=== PATIENT | male | born 1935 | race Caucasian/White ===

== ENCOUNTER 2017-11-03 13:51 | Emergency (ER) | payer MEDICARE, SELFPAY ==
[2017-11-03 14:07] VITALS: BP 146/85; PULSE 63; RESP 16; TEMP 36.2; O2SAT 98; BMI 25.1
--- NOTE | 2017-11-03 15:29 | ED.SKABFB ---
HPI - Skin/Abscess/Foreign Bdy <ANNMARIE Garcia - Last Filed: 11/03/17 21:32> General Chief complaint: Skin/Abscess/Foreign Body Stated complaint: cut lt hand Time Seen by Provider: 11/03/17 15:29 History of Present Illness HPI narrative: 82-year-old male here for complaint of laceration to his left little finger. He states that he slipped on some while on his boat and causing him to come a time today with some metal on the boat. Incident have not earlier this afternoon. He denies any other injuries. No head injuries. He states his last tetanus was approximately 6 years ago. Bleeding is controlled. He is ambulatory into the emergency room. No other complaints Related Data Home Medications Medication Instructions Recorded Confirmed Vitamin C 1 tab PO DAILY 11/03/17 11/03/17 cholecalciferol (vitamin D3) 400 unit PO DAILY 11/03/17 11/03/17 [Vitamin D3] multivitamin 1 cap PO DAILY 11/03/17 11/03/17 Previous Rx's Medication Instructions Recorded amlodipine [Norvasc] 10 mg PO QDAY #90 tab 01/16/17 hydrochlorothiazide 25 mg PO QDAY #90 tab 06/13/17 Allergies Allergy/AdvReac Type Severity Reaction Status Date / Time aspirin Allergy Severe THROAT Unverified 09/04/17 13:05 SWELLING ibuprofen Allergy Intermediate HIVES Unverified 09/04/17 13:05 naproxen Allergy Intermediate HIVES Unverified 09/04/17 13:05 lisinopril AdvReac Mild COUGH Unverified 09/04/17 13:05 metronidazole AdvReac Mild NAUSEA Verified 11/03/17 14:10 Review of Systems <ANNMARIE Garcia - Last Filed: 11/03/17 21:32> Constitutional Denies chills, Denies fever(s), Denies lethargy and Denies weakness Eyes Denies change in vision, Denies eye discharge, Denies irritation and Denies loss of vision ENT Ears, Nose, Mouth, and Throat: Denies change in voice, Denies neck pain and Denies sore throat Cardiovascular Denies chest pain, Denies irregular heart rhythm, Denies lightheadedness, Denies palpitations, Denies dyspnea, Denies dyspnea on exertion and Denies orthopnea Respiratory Denies cough, Denies dyspnea, Denies dyspnea on exertion and Denies wheezing Gastrointestinal Gastrointestinal: Denies abdominal pain, Denies change in bowel habits, Denies diarrhea, Denies nausea and Denies vomiting Genitourinary Denies hematuria, Denies flank pain, Denies urinary incontinence and Denies urinary urgency Musculoskeletal Denies neck pain Comments: Laceration left little finger Integumentary/Breasts Denies pruritus, Denies erythema, Denies rash and Denies wounds Neurologic Denies confusion, Denies loss of vision and Denies weakness Psychiatric Denies anxiety, Denies confusion, Denies depression, Denies homicidal ideation and Denies suicidal ideation Endocrine Denies palpitations Allergic/Immunologic Denies wheezing Exam <ANNMARIE Garcia - Last Filed: 11/03/17 21:32> Initial Vital Signs Initial Vital Signs: Vital Signs Temperature 97.2 F L 11/03/17 14:07 Pulse Rate 63 11/03/17 14:07 Respiratory Rate 16 11/03/17 14:07 Blood Pressure 146/85 H 11/03/17 14:07 Pulse Oximetry 98 11/03/17 14:07 Const General: cooperative and well developed Nutritional Appearance: well nourished Orientation: alert, awake, oriented x3 and not confused [facility] Mouth: oral mucosae normal and moist mucous membranes Eyes Conjunctivae: conjunctivae normal Sclera: sclerae normal Pupils: PERRL EOM: EOM intact bilaterally Resp Effort & Inspection: normal respiratory effort, able to speak in complete sentences, no respiratory distress and no use of accessory muscles Auscultation: clear to auscultation bilaterally, no rales, no rhonchi and no wheezes Cardio Rate: regular rate Rhythm: regular rhythm Heart Sounds: no click, no gallops, no murmurs and no rubs Pulses: normal peripheral pulses Skin General: no rashes or lesions noted, No jaundice and No petechiae Other: 2 cm laceration to distal left little finger palmar aspect just distal to the DIP. Distal sensation is intact. Full range of motion. Distal cap refill less than 2 sec. <Wilfrid Chawla DO - Last Filed: 11/04/17 07:18> Initial Vital Signs Initial Vital Signs: Vital Signs Temperature 97.2 F L 11/03/17 14:07 Pulse Rate 63 11/03/17 14:07 Respiratory Rate 16 11/03/17 14:07 Blood Pressure 146/85 H 11/03/17 14:07 Pulse Oximetry 98 11/03/17 14:07 Procedures <ANNMARIE Garcia - Last Filed: 11/03/17 21:32> Laceration Repair Laceration 1: Site: other (Left little finger) Side (If applicable): left Size (cm): 2 Description: linear Depth: simple, single layer Local Anesthetic: lidocaine 1% Amount of anesthesia used (mL): 2 Pre-repair: wound explored and irrigated extensively Skin layer closed with: nylon Size (cm): 5-0 Number of sutures: 6 Technique: simple, interrupted Course <ANNMARIE Garcia - Last Filed: 11/03/17 21:32> Orders Ordered: Discontinued Medications Diphtheria/Tetanus/Acell Pertussis (Adacel) 0.5 ml IM .ONCE ONE Stop: 11/03/17 15:36 Last Admin: 11/03/17 15:55 Dose: 0.5 ml Vital Signs - 8 hr 11/03/17 14:07 11/03/17 16:27 Temperature 97.2 F L Pulse Rate 63 65 Respiratory Rate 16 15 Blood Pressure 146/85 H Blood Pressure [Right Arm] 152/83 H Pulse Oximetry 98 97 <Wilfrid Chawla DO - Last Filed: 11/04/17 07:18> Orders Ordered: Discontinued Medications Diphtheria/Tetanus/Acell Pertussis (Adacel) 0.5 ml IM .ONCE ONE Stop: 11/03/17 15:36 Last Admin: 11/03/17 15:55 Dose: 0.5 ml Vital Signs - 8 hr 11/03/17 14:07 11/03/17 16:27 Temperature 97.2 F L Pulse Rate 63 65 Respiratory Rate 16 15 Blood Pressure 146/85 H Blood Pressure [Right Arm] 152/83 H Pulse Oximetry 98 97 MDM - Skin/Abscess/Foreign Bdy <ANNMARIE Garcia - Last Filed: 11/03/17 21:32> Imaging Data finger: Radiologist's impression: Patient: Devante Mabry MR#: [id number] : 1935 Acct:[id number] Age/Sex: 82 / M Date of Service: 11/03/17 Loc: ED Accession Number: [id number] Procedure: XR finger LT min 2V Ordering Provider: Emery Her PROCEDURE: XR FINGER LT MIN 2V INDICATIONS: Laceration to left little finger TECHNIQUE: AP hand, 2 views of the left finger(s) acquired. COMPARISON: None. FINDINGS: Bones: No fractures or dislocations. No suspicious bony lesions. Diffuse interphalangeal, distal radioulnar, triscaphe and first CMC joint degeneration Soft tissues: No suspicious soft tissue calcifications. IMPRESSION: No radiopaque foreign body or fracture. Degenerative changes as above Dictated by: Clint Pierce M.D. on 11/03/2017 at 16:01 Approved by: Clint Pierce M.D. on 11/03/2017 at 16:03 [facility] Narrative Medical decision making narrative: Laceration to left finger was closed with 6 sutures. Sutures to be removed in 7-10 days. [id number] Tylenol as needed for any discomfort. X-ray of the fingers was negative for any foreign bodies or fractures. Tetanus was updated today in the emergency room. Keep dressing on clean and dry for 24 hr after the 24 hr may change dressing and shower briefly after showering dry wound and dressed with bacitracin and a dressing. Dress wound daily with bacitracin and a dressing. Follow up with primary care provider. Return emergency room for any worsening symptoms. Discharge Plan Departure Patient Disposition: Home, Self-Care Clinical Impression: Laceration of left little finger Discharge Date/Time: 11/03/17 16:30 Interventions: ED Discharge Assessment Last Done: 11/03/17 16:27 Instructions: DI for Laceration Repair Activity Restrictions/Additional Instructions: Laceration to left finger was closed with 6 sutures. Sutures to be removed in 7-10 days. [id number] Tylenol as needed for any discomfort. Tetanus was updated today in the emergency room. Keep dressing on clean and dry for 24 hr after the 24 hr may change dressing and shower briefly after showering dry wound and dressed with bacitracin and a dressing. Dress wound daily with bacitracin and a dressing. Follow up with primary care provider. Return emergency room for any worsening symptoms. Prescriptions: No Action amlodipine [Norvasc] 10 MG tablet 10 mg PO QDAY Qty: 90 RF: 3 hydrochlorothiazide 25 MG tablet 25 mg PO QDAY Qty: 90 RF: 3 multivitamin Capsule 1 cap PO DAILY RF: 0 cholecalciferol (vitamin D3) [Vitamin D3] 400 unit Tablet 400 unit PO DAILY RF: 0 Vitamin C 1 tab PO DAILY RF: 0 Referrals: Albino Coughlin MD [Primary Care Provider] - <Wilfrid Chawla DO - Last Filed: 11/04/17 07:18> Cosign ED Attending Cosionaature Attestation: I was immediately available in the department for consultation. Documentation has been reviewed. I agree with assessment and plan.
--- NOTE | 2017-11-03 15:35 | DI.RAD.S_ITS ---
PROCEDURE: XR FINGER LT MIN 2V INDICATIONS: Laceration to left little finger TECHNIQUE: AP hand, 2 views of the left finger(s) acquired. COMPARISON: None. FINDINGS: Bones: No fractures or dislocations. No suspicious bony lesions. Diffuse interphalangeal, distal radioulnar, triscaphe and first CMC joint degeneration Soft tissues: No suspicious soft tissue calcifications. IMPRESSION: No radiopaque foreign body or fracture. Degenerative changes as above Dictated by: Clint Pierce M.D. on 11/03/2017 at 16:01 Approved by: Clint Pierce M.D. on 11/03/2017 at 16:03
[2017-11-03] MEDS: TET,DIPH,PERTUSS(ACELL),VAC/PF 0.5 ML SYRINGE IM (15:55)
--- NOTE | 2017-11-03 16:23 | PC.NURSE ---
5/8 tubeguaze and xeroform 1 im to l 5th finger
[2017-11-03 16:27] VITALS: BP 152/83; PULSE 65; RESP 15; O2SAT 97
== END 2017-11-03 16:30 | disposition home or self-care (01) ==
PROVIDERS: Emergency Provider Nurse Practitioner Family; PCP Internal Medicine
DX: S61.217A Laceration without foreign body of left little finger without damage to nail, initial encounter (principal); W26.9XXA Contact with unspecified sharp object(s), initial encounter
CPT/HCPCS: 12001; 73140; 90471; 99282; 99283; 90715

== ENCOUNTER → 2018-03-03 10:15 | Outpatient (CLI) | payer MEDICARE, SELFPAY ==
[2018-03-03 12:21] LABS: BUN Creatinine Ratio 18.8 (6-22); Blood Urea Nitrogen 15 mg/dL (9-20); Calcium 9.6 mg/dL (8.4-10.2); Carbon Dioxide 34 mmol/L (22-32); Chloride 100 mmol/L (98-107); Estimated Glomerular Filt Rate > 60.0 mL/min (>60); Glucose 87 mg/dL (80-110); HEMOLYSIS < 15 (0-50); Potassium 3.7 mmol/L (3.4-5.1); Sodium 142 mmol/L (137-145)
== END ==
PROVIDERS: PCP Internal Medicine; Visit Provider Internal Medicine
DX: I10 Essential (primary) hypertension (principal)
CPT/HCPCS: 36415; 80048

== ENCOUNTER 2018-04-24 06:49 | Emergency (ER) | payer MEDICARE, SELFPAY ==
[2018-04-24 06:55] VITALS: BP 153/86; PULSE 88; RESP 16; TEMP 37.2; O2SAT 99; BMI 24.3
--- NOTE | 2018-04-24 06:58 | DI.RAD.S_ITS ---
PROCEDURE: XR CHEST 1V INDICATIONS: Chest tightness with cough TECHNIQUE: One view of the chest was acquired. COMPARISON: [facility], CHEST 2 VIEW, 08/04/2015, 15:57. [facility], , CHEST 1 VIEW, 03/23/2015, 10:03. FINDINGS: Surgical changes and devices: None. Lungs and pleura: No pleural effusions or pneumothorax. Lungs are clear. Mediastinum: Mediastinal contours appear normal. Heart size is normal. Bones and chest wall: No suspicious bony lesions. Overlying soft tissues appear unremarkable. IMPRESSION: Normal for age, source of current symptoms is not seen. Dictated by: Joel Chowdary M.D. on 04/24/2018 at 8:10 Approved by: Joel Chowdary M.D. on 04/24/2018 at 8:14
[2018-04-24 07:18] LABS: INR 1.1 (0.9-1.3); Prothrombin Time 11.4 SECONDS (10.1-12.7)
[2018-04-24 07:20] LABS: Add Manual Diff / Slide Review NO; Basophils Percent Auto 0.4 % (0-2); Eosinophils Percent Auto 4.1 % (2-4); Hemoglobin 15.6 g/dL (13.5-17.5); Lymphocytes Percent Auto 20.2 % (25-40); Mean Corpuscular HGB Conc 34.7 % (30-36); Mean Corpuscular Hemoglobin 29.4 PG (26-34); Mean Corpuscular Volume 84.6 fL (80-100); Monocytes Percent Auto 10.9 % (3-14); Neutrophils Absolute Auto 5200 /uL (3000-5900); Neutrophils Percent Auto 64.4 % (50-75); PTT Partial Thromboplastin Tim 33 SECONDS (26.4-36.2); Platelet Count 217 X10^3/uL (150-400); Red Blood Cell Count 5.31 X10^6/uL (4.5-5.9); Red Cell Distribution Width 14.1 % (11.6-14.8); White Blood Cell Count 8.1 X10^3/uL (4.5-11.0)
[2018-04-24 07:23] LABS: Alanine Aminotransferase 24 IU/L (21-72); Albumin 4.7 g/dL (3.5-5.0); Albumin Globulin Ratio 1.4 (1.0-2.8); Alkaline Phosphatase 74 U/L (38-126); Aspartate Aminotransferase 24 IU/L (17-59); Bilirubin Total 0.7 mg/dL (0.2-1.3); Blood Urea Nitrogen 20 mg/dL (9-20); Calcium 9.4 mg/dL (8.4-10.2); Carbon Dioxide 32 mmol/L (22-32); Chloride 100 mmol/L (98-107); Estimated Glomerular Filt Rate > 60.0 mL/min (>60); Globulin 3.3 g/dL (1.7-4.1); Glucose 105 mg/dL (80-110); HEMOLYSIS < 15 (0-50); Lipase 90 U/L (23-300); Potassium 3.7 mmol/L (3.4-5.1); Sodium 145 mmol/L (137-145)
--- NOTE | 2018-04-24 07:26 | ED.CHESTPAIN ---
HPI - Chest Pain General Chief Complaint: Chest Pain Stated Complaint: heaviness in chest, cough Time Seen by Provider: 04/24/18 06:57 Source: patient and old records reviewed Mode of arrival: ambulatory Limitations: no limitations History of Present Illness HPI narrative: This is an 82-year-old male who comes to the emergency department with complaint of chest pain. Patient states that about 3 days ago he started having a sore throat for starting on the left side and then to the right. He also noticed that he was horse. He states the forces improving today. He has not had any fevers. He has had mild cough which she describes having a little bit of phlegm production with a slight change to color and thickness but very mild. He states that this morning about 4:00 a.m. he was awake and noticed that he had some chest pain and pressure that started. He describes it not as pain but pressure. He states it has been constant since then although it has resolved here in the emergency department. Patient states that he does not feel short of breath at any time. He denies any nausea or vomiting. No diarrhea or constipation he denies any fevers, he denies any rashes or skin changes. Patient does not have any known cardiac history, no prior stents or heart attacks. He does take blood pressure medication including amlodipine and hydrochlorothiazide which he had not had this morning. 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 This was when he was 14. He denies any allergies. MD complaint: chest pain Related Data Home Medications Medication Instructions Recorded Confirmed cholecalciferol (vitamin D3) 400 unit PO DAILY 11/03/17 03/03/18 [Vitamin D3] multivitamin 1 cap PO DAILY 11/03/17 03/03/18 Previous Rx's Medication Instructions Recorded hydrochlorothiazide 25 mg PO QDAY #90 tab 06/13/17 amlodipine [Norvasc] 10 mg PO QDAY #90 tab 01/14/18 sildenafil (antihypertensive) 20 See Label Instructions PO .COMPLEX 03/03/18 mg tablet PRN #30 tab Allergies Allergy/AdvReac Type Severity Reaction Status Date / Time aspirin Allergy Severe THROAT Verified 03/03/18 09:33 SWELLING ibuprofen Allergy Intermediate HIVES Verified 03/03/18 09:33 naproxen Allergy Intermediate HIVES Verified 03/03/18 09:33 lisinopril AdvReac Mild COUGH Verified 03/03/18 09:33 metronidazole AdvReac Mild NAUSEA Verified 03/03/18 09:33 Review of Systems Review of Systems All systems reviewed & are unremarkable except as noted in HPI and below Constitutional Denies body ache(s) and Denies fever(s) ENT Ears, Nose, Mouth, and Throat: Reports hoarseness, Denies nasal congestion, Reports sore throat and Denies throat swelling Cardiovascular Reports chest pain, Denies diaphoresis, Denies syncope, Denies edema, Denies radiating jaw, neck or arm pain, Denies dyspnea and Denies dyspnea on exertion Respiratory Reports change in phlegm color, Reports chest congestion, Reports cough (mildly increased phlegm), Denies dyspnea, Denies dyspnea on exertion and Denies wheezing Gastrointestinal Gastrointestinal: Denies abdominal pain, Denies change in bowel habits, Denies diarrhea, Denies nausea and Denies vomiting Genitourinary Denies difficulty urinating Musculoskeletal Denies back pain Integumentary/Breasts Denies rash Neurologic Denies syncope Allergic/Immunologic Denies throat swelling and Denies wheezing [facility] Medical History Essential hypertension (Chronic 04/09/11) Palpitations (Inactive) Psoriasis (Chronic 04/09/11) Hypertension (Chronic) Psoriasis (Chronic) Surgical History Status post transurethral resection of prostate Social History marital status: number of children: 2 household members: none lives independently: Yes caregiver/support person: No housing: house pets and animals: Yes (Fish) 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[employer], 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.) occupational status: other (Retired) Previous occupational history: [employer] leisure activities: exercise (Walking.), 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 1 beer a day with Dinner.) substance use type: does not use Exam Narrative Exam Narrative: GEN: well nourished, well appearing male, alert and oriented x 3, patient appears to be in no acute distress. HEENT: Atraumatic, pupils are equal round reactive to light, extraocular movements are intact, nares are clear, TMs are clear with no fluid, there is no conjunctival pallor. Throat is without any exudates, mild erythema, no tonsillar enlargement or uvular deviation, patient is slightly hoarse. HEART: Regular rate and rhythm without murmur, clicks, rubs. LUNGS:Lungs clear to auscultation, no wheezes, rales, crackles, chest moves symmetrically no tachypnea, no rash or skin changes of the chest. ABD:bowel sounds normal, soft, non-tender, no guarding, rebound, rigidity, no masses noted, no hepatosplenomegaly :No CVA tenderness MSCL: Non-tender, no muscle atrophy, full range of motion, normal gait NEURO:CN 2-12 intact, sensation normal Initial Vital Signs Initial Vital Signs: Vital Signs Temperature 98.9 F 04/24/18 06:55 Pulse Rate 88 04/24/18 06:55 Respiratory Rate 16 04/24/18 06:55 Blood Pressure 153/86 H 04/24/18 06:55 Pulse Oximetry 99 04/24/18 06:55 Scores HEART Score Heart Score history: Slightly Suspicious Heart Score EKG: Non-Specific repolarization disturbance Heart Score Age: > or = 65 years old Heart Score risk factors: 1-2 risk factors Heart Score troponin: < or = to normal limit Heart Score Total: 4 Course Orders Ordered: ED Orders 04/24/18 06:52 B Type Natriuretic Peptide Stat Complete Blood Count AUTO DIFF Stat Comprehensive Metabolic Panel Stat Lipase Stat Partial Thromboplastin Time Stat Prothrombin Time INR Stat Troponin I Stat 04/24/18 06:58 XR chest 1V Stat EKG-12 Lead Stat 04/24/18 09:00 EKG-12 Lead Stat 04/24/18 09:15 Troponin & CK Cardiac Panel Stat Vital Signs - 8 hr 04/24/18 06:55 04/24/18 08:45 04/24/18 09:14 Temperature 98.9 F Pulse Rate 88 65 66 Respiratory Rate 16 18 14 Blood Pressure 153/86 H Blood Pressure [Left Arm] 117/74 121/75 Pulse Oximetry 99 95 MDM - Chest Pain Lab Data Attestation: I reviewed the patient's lab results. Result diagrams: 04/24/18 06:52 04/24/18 06:52 Lab Results 04/24/18 04/24/18 04/24/18 Range/Units 06:52 06:52 06:52 WBC 8.1 (4.5-11.0) X10^3/uL RBC 5.31 (4.5-5.9) X10^6/uL Hgb 15.6 (13.5-17.5) g/dL Hct 45.0 (41-53) % MCV 84.6 (80-100) fL MCH 29.4 (26-34) PG MCHC 34.7 (30-36) % RDW 14.1 (11.6-14.8) % Plt Count 217 (150-400) X10^3/uL Neut % (Auto) 64.4 (50-75) % Lymph % (Auto) 20.2 L (25-40) % Nelson % (Auto) 10.9 (3-14) % Eos % (Auto) 4.1 H (2-4) % Baso % (Auto) 0.4 (0-2) % Neut # (Auto) 5200 (1816-6183) /uL PT 11.4 (10.1-12.7) SECONDS INR 1.1 (0.9-1.3) APTT 33 (26.4-36.2) SECONDS Sodium 145 (137-145) mmol/L Potassium 3.7 (3.4-5.1) mmol/L Chloride 100 (98-107) mmol/L Carbon Dioxide 32 (22-32) mmol/L BUN 20 (9-20) mg/dL Creatinine 0.80 (0.66-1.25) mg/dL Estimated GFR > 60.0 (>60) mL/min BUN/Creatinine Ratio 25.0 H (6-22) Glucose 105 (80-110) mg/dL Calcium 9.4 (8.4-10.2) mg/dL Total Bilirubin 0.7 (0.2-1.3) mg/dL AST 24 (17-59) IU/L ALT 24 (21-72) IU/L Alkaline Phosphatase 74 (38-126) U/L Total Creatine Kinase (55-170) U/L CK-MB (CK-2) CK-MB (CK-2) Rel Index Troponin I < 0.012 (0.01-0.034) ng/mL B-Natriuretic Peptide 47.5 (<100) Total Protein 8.0 (6.3-8.2) g/dL Albumin 4.7 (3.5-5.0) g/dL Globulin 3.3 (1.7-4.1) g/dL Albumin/Globulin Ratio 1.4 (1.0-2.8) Lipase 90 (23-300) U/L 04/24/18 Range/Units 09:15 WBC (4.5-11.0) X10^3/uL RBC (4.5-5.9) X10^6/uL Hgb (13.5-17.5) g/dL Hct (41-53) % MCV (80-100) fL MCH (26-34) PG MCHC (30-36) % RDW (11.6-14.8) % Plt Count (150-400) X10^3/uL Neut % (Auto) (50-75) % Lymph % (Auto) (25-40) % Nelson % (Auto) (3-14) % Eos % (Auto) (2-4) % Baso % (Auto) (0-2) % Neut # (Auto) (4036-2452) /uL PT (10.1-12.7) SECONDS INR (0.9-1.3) APTT (26.4-36.2) SECONDS Sodium (137-145) mmol/L Potassium (3.4-5.1) mmol/L Chloride (98-107) mmol/L Carbon Dioxide (22-32) mmol/L BUN (9-20) mg/dL Creatinine (0.66-1.25) mg/dL Estimated GFR (>60) mL/min BUN/Creatinine Ratio (6-22) Glucose (80-110) mg/dL Calcium (8.4-10.2) mg/dL Total Bilirubin (0.2-1.3) mg/dL AST (17-59) IU/L ALT (21-72) IU/L Alkaline Phosphatase (38-126) U/L Total Creatine Kinase 39 L (55-170) U/L CK-MB (CK-2) TNP CK-MB (CK-2) Rel Index TNP Troponin I < 0.012 (0.01-0.034) ng/mL B-Natriuretic Peptide (<100) Total Protein (6.3-8.2) g/dL Albumin (3.5-5.0) g/dL Globulin (1.7-4.1) g/dL Albumin/Globulin Ratio (1.0-2.8) Lipase (23-300) U/L Imaging Data Chest x-ray: Radiologist's impression: [address] [id number] XRay Report Signed Patient: Devante Mabry [facility]#: [id number] : 8Acct:[id number] Age/Sex: 82 / MDate of Service: 04/24/18 Loc: ED Accession Number: [id number] Procedure: XR chest 1V Ordering Provider: Wenceslao Galindo D.O. PROCEDURE: XR CHEST 1V INDICATIONS: Chest tightness with cough TECHNIQUE: One view of the chest was acquired. COMPARISON: [facility], , CHEST 2 VIEW, 08/04/2015, 15:57. [facility], , CHEST 1 VIEW, 03/23/2015, 10:03. FINDINGS: Surgical changes and devices: None. Lungs and pleura: No pleural effusions or pneumothorax. Lungs are clear. Mediastinum: Mediastinal contours appear normal. Heart size is normal. Bones and chest wall: No suspicious bony lesions. Overlying soft tissues appear unremarkable. IMPRESSION: Normal for age, source of current symptoms is not seen. Dictated by: Joel Chowdary M.D. on 04/24/2018 at 8:10 Approved by: Joel Chowdary M.D. on 04/24/2018 at 8:14 ECG Data Attestation: I personally reviewed and interpreted this ECG as follows: Prior ECG tracings: available for review Interpretation: Sinus rhythm with a rate of 76 P are 170 QRS of 126 and QTC of 482. No ST elevation or depression appreciated. Patient has prior EKG from 03/23/2017 which appears similar. EKG 2. Shows a sinus rhythm with a rate of 65 P are 160 QRS of 115 and QTC of 436. EKG appears similar to prior from earlier today. MDM Narrative Medical decision making narrative: Patient negative troponin with no major EKG changes. He does have risk factors with his age as well as hypertension. Otherwise no known cardiac history. I suspect that he has a viral pharyngitis but that this is likely the cause of his chest pain although possibly. Discussed with patient about possible observation versus 4 hr troponin and patient defers observation. Patient's heart score is 4. Spoke with Dr. Coughlin and felt that his chest pain is not necessarily cardiac in origin, he will also reveiw today's EKG's. We will plan to repeat troponin and EKG and did discuss the risks versus benefits with patient and as repeat and troponin are negative and showed no new changes Patient will follow up with Dr. Coughlin for short-term stress testing. Discharge Plan Departure Patient Disposition: Home Clinical Impression: Chest pain, Acute pharyngitis Discharge Date/Time: 04/24/18 10:08 Interventions: ED Discharge Assessment Last Done: 04/24/18 10:07 Instructions: DI for Chest Pain Activity Restrictions/Additional Instructions: Follow-up with Dr. Coughlin in the next 1-2 days for recheck. Call the office for an appointment. Dr. Coughlin is aware of your emergency room visit and is planning to set you up for stress testing in the short term. Continue your home medications as prescribed. Return to the emergency department for increasing chest pain, shortness of breath, passing out, difficulty breathing or other new or concerning symptoms. Prescriptions: No Action hydrochlorothiazide 25 MG tablet 25 mg PO QDAY Qty: 90 RF: 3 amlodipine [Norvasc] 10 mg tablet 10 mg PO QDAY Qty: 90 RF: 3 sildenafil (antihypertensive) 20 mg tablet See Label Instructions PO .COMPLEX PRN (Reason: sexual activity) Qty: 30 RF: 3 multivitamin Capsule 1 cap PO DAILY RF: 0 cholecalciferol (vitamin D3) [Vitamin D3] 400 unit Tablet 400 unit PO DAILY RF: 0 Referrals: Albino Coughlin MD [Primary Care Provider] -
[2018-04-24 07:36] LABS: Troponin I < 0.012 ng/mL (0.01-0.034)
[2018-04-24 07:54] LABS: B Type Natriuretic Peptide 47.5 (<100)
--- NOTE | 2018-04-24 08:25 | ED_ITS ---
HPI - Chest Pain General Chief Complaint: Chest Pain Stated Complaint: heaviness in chest, cough Time Seen by Provider: 04/24/18 06:57 Source: patient and old records reviewed Mode of arrival: ambulatory Limitations: no limitations History of Present Illness HPI narrative: This is an 82-year-old male who comes to the emergency department with complaint of chest pain. Patient states that about 3 days ago he started having a sore throat for starting on the left side and then to the right. He also noticed that he was horse. He states the forces improving today. He has not had any fevers. He has had mild cough which she describes having a little bit of phlegm production with a slight change to color and thickness but very mild. He states that this morning about 4:00 a.m. he was awake and noticed that he had some chest pain and pressure that started. He describes it not as pain but pressure. He states it has been constant since then although it has resolved here in the emergency department. Patient states that he does not feel short of breath at any time. He denies any nausea or vomiting. No diarrhea or constipation he denies any fevers, he denies any rashes or skin changes. Patient does not have any known cardiac history, no prior stents or heart attacks. He does take blood pressure medication including amlodipine and hydrochlorothiazide which he had not had this morning. 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 This was when he was 14. He denies any allergies. MD complaint: chest pain Related Data Home Medications Medication Instructions Recorded Confirmed cholecalciferol (vitamin D3) 400 unit PO DAILY 11/03/17 03/03/18 [Vitamin D3] multivitamin 1 cap PO DAILY 11/03/17 03/03/18 Previous Rx's Medication Instructions Recorded hydrochlorothiazide 25 mg PO QDAY #90 tab 06/13/17 amlodipine [Norvasc] 10 mg PO QDAY #90 tab 01/14/18 sildenafil (antihypertensive) 20 See Label Instructions PO .COMPLEX 03/03/18 mg tablet PRN #30 tab Allergies Allergy/AdvReac Type Severity Reaction Status Date / Time aspirin Allergy Severe THROAT Verified 03/03/18 09:33 SWELLING ibuprofen Allergy Intermediate HIVES Verified 03/03/18 09:33 naproxen Allergy Intermediate HIVES Verified 03/03/18 09:33 lisinopril AdvReac Mild COUGH Verified 03/03/18 09:33 metronidazole AdvReac Mild NAUSEA Verified 03/03/18 09:33 Review of Systems Review of Systems All systems reviewed & are unremarkable except as noted in HPI and below Constitutional Denies body ache(s) and Denies fever(s) ENT Ears, Nose, Mouth, and Throat: Reports hoarseness, Denies nasal congestion, Reports sore throat and Denies throat swelling Cardiovascular Reports chest pain, Denies diaphoresis, Denies syncope, Denies edema, Denies radiating jaw, neck or arm pain, Denies dyspnea and Denies dyspnea on exertion Respiratory Reports change in phlegm color, Reports chest congestion, Reports cough (mildly increased phlegm), Denies dyspnea, Denies dyspnea on exertion and Denies wheezing Gastrointestinal Gastrointestinal: Denies abdominal pain, Denies change in bowel habits, Denies diarrhea, Denies nausea and Denies vomiting Genitourinary Denies difficulty urinating Musculoskeletal Denies back pain Integumentary/Breasts Denies rash Neurologic Denies syncope Allergic/Immunologic Denies throat swelling and Denies wheezing [facility] History Essential hypertension (Chronic 04/09/11) Palpitations (Inactive) Psoriasis (Chronic 04/09/11) Hypertension (Chronic) Psoriasis (Chronic) Surgical History Status post transurethral resection of prostate Social History marital status: number of children: 2 household members: none lives independently: Yes caregiver/support person: No housing: house pets and animals: Yes (Fish) 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[employer], 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.) occupational status: other (Retired) Previous occupational history: [employer] leisure activities: exercise (Walking.), 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 1 beer a day with Dinner.) substance use type: does not use Exam Narrative Exam Narrative: GEN: well nourished, well appearing male, alert and oriented x 3 , patient appears to be in no acute distress. HEENT: Atraumatic, pupils are equal round reactive to light, extraocular movements are intact, nares are clear, TMs are clear with no fluid, there is no conjunctival pallor. Throat is without any exudates, mild erythema, no tonsillar enlargement or uvular deviation, patient is slightly hoarse. HEART: Regular rate and rhythm without murmur, clicks, rubs. LUNGS:Lungs clear to auscultation, no wheezes, rales, crackles, chest moves symmetrically no tachypnea, no rash or skin changes of the chest. ABD:bowel sounds normal, soft, non-tender, no guarding, rebound, rigidity, no masses noted, no hepatosplenomegaly :No CVA tenderness MSCL: Non-tender, no muscle atrophy, full range of motion, normal gait NEURO:CN 2-12 intact, sensation normal Initial Vital Signs Initial Vital Signs: Vital Signs Temperature 98.9 F 04/24/18 06:55 Pulse Rate 88 04/24/18 06:55 Respiratory Rate 16 04/24/18 06:55 Blood Pressure 153/86 H 04/24/18 06:55 Pulse Oximetry 99 04/24/18 06:55 Scores HEART Score Heart Score history: Slightly Suspicious Heart Score EKG: Non-Specific repolarization disturbance Heart Score Age: > or = 65 years old Heart Score risk factors: 1-2 risk factors Heart Score troponin: < or = to normal limit Heart Score Total: 4 Course Orders Ordered: ED Orders 04/24/18 06:52 B Type Natriuretic Peptide Stat Complete Blood Count AUTO DIFF Stat Comprehensive Metabolic Panel Stat Lipase Stat Partial Thromboplastin Time Stat Prothrombin Time INR Stat Troponin I Stat 04/24/18 06:58 XR chest 1V Stat EKG-12 Lead Stat 04/24/18 09:00 EKG-12 Lead Stat 04/24/18 09:15 Troponin & CK Cardiac Panel Stat Vital Signs - 8 hr 04/24/18 06:55 04/24/18 08:45 04/24/18 09:14 Temperature 98.9 F Pulse Rate 88 65 66 Respiratory Rate 16 18 14 Blood Pressure 153/86 H Blood Pressure [Left Arm] 117/74 121/75 Pulse Oximetry 99 95 MDM - Chest Pain Lab Data Attestation: I reviewed the patient's lab results. Result diagrams: 04/24/18 06:52 04/24/18 06:52 Lab Results 04/24/18 04/24/18 04/24/18 Range/Units 06:52 06:52 06:52 WBC 8.1 (4.5-11.0) X10^3/uL RBC 5.31 (4.5-5.9) X10^6/uL Hgb 15.6 (13.5-17.5) g/dL Hct 45.0 (41-53) % MCV 84.6 (80-100) fL MCH 29.4 (26-34) PG MCHC 34.7 (30-36) % RDW 14.1 (11.6-14.8) % Plt Count 217 (150-400) X10^3/uL Neut % (Auto) 64.4 (50-75) % Lymph % (Auto) 20.2 L (25-40) % Zavala % (Auto) 10.9 (3-14) % Eos % (Auto) 4.1 H (2-4) % Baso % (Auto) 0.4 (0-2) % Neut # (Auto) 5200 (5706-8640) /uL PT 11.4 (10.1-12.7) SECONDS INR 1.1 (0.9-1.3) APTT 33 (26.4-36.2) SECONDS Sodium 145 (137-145) mmol/L Potassium 3.7 (3.4-5.1) mmol/L Chloride 100 (98-107) mmol/L Carbon Dioxide 32 (22-32) mmol/L BUN 20 (9-20) mg/dL Creatinine 0.80 (0.66-1.25) mg/dL Estimated GFR > 60.0 (>60) mL/min BUN/Creatinine Ratio 25.0 H (6-22) Glucose 105 (80-110) mg/dL Calcium 9.4 (8.4-10.2) mg/dL Total Bilirubin 0.7 (0.2-1.3) mg/dL AST 24 (17-59) IU/L ALT 24 (21-72) IU/L Alkaline Phosphatase 74 (38-126) U/L Total Creatine Kinase (55-170) U/L CK-MB (CK-2) CK-MB (CK-2) Rel Index Troponin I < 0.012 (0.01-0.034) ng/mL B-Natriuretic Peptide 47.5 (<100) Total Protein 8.0 (6.3-8.2) g/dL Albumin 4.7 (3.5-5.0) g/dL Globulin 3.3 (1.7-4.1) g/dL Albumin/Globulin Ratio 1.4 (1.0-2.8) Lipase 90 (23-300) U/L 04/24/18 Range/Units 09:15 WBC (4.5-11.0) X10^3/uL RBC (4.5-5.9) X10^6/uL Hgb (13.5-17.5) g/dL Hct (41-53) % MCV (80-100) fL MCH (26-34) PG MCHC (30-36) % RDW (11.6-14.8) % Plt Count (150-400) X10^3/uL Neut % (Auto) (50-75) % Lymph % (Auto) (25-40) % Zavala % (Auto) (3-14) % Eos % (Auto) (2-4) % Baso % (Auto) (0-2) % Neut # (Auto) (6917-4156) /uL PT (10.1-12.7) SECONDS INR (0.9-1.3) APTT (26.4-36.2) SECONDS Sodium (137-145) mmol/L Potassium (3.4-5.1) mmol/L Chloride (98-107) mmol/L Carbon Dioxide (22-32) mmol/L BUN (9-20) mg/dL Creatinine (0.66-1.25) mg/dL Estimated GFR (>60) mL/min BUN/Creatinine Ratio (6-22) Glucose (80-110) mg/dL Calcium (8.4-10.2) mg/dL Total Bilirubin (0.2-1.3) mg/dL AST (17-59) IU/L ALT (21-72) IU/L Alkaline Phosphatase (38-126) U/L Total Creatine Kinase 39 L (55-170) U/L CK-MB (CK-2) TNP CK-MB (CK-2) Rel Index TNP Troponin I < 0.012 (0.01-0.034) ng/mL B-Natriuretic Peptide (<100) Total Protein (6.3-8.2) g/dL Albumin (3.5-5.0) g/dL Globulin (1.7-4.1) g/dL Albumin/Globulin Ratio (1.0-2.8) Lipase (23-300) U/L Imaging Data Chest x-ray: Radiologist's impression: [address] [address] XRay Report Signed Patient: Devante Mabry [facility]#: [id number] : 8Acct:[id number] Age/Sex: 82 / MDate of Service: 04/24/18 Loc: ED Accession Number: [id number] Procedure: XR chest 1V Ordering Provider: Wenceslao Galindo D.O. PROCEDURE: XR CHEST 1V INDICATIONS: Chest tightness with cough TECHNIQUE: One view of the chest was acquired. COMPARISON: [facility], , CHEST 2 VIEW, 08/04/2015, 15:57. [facility], , CHEST 1 VIEW, 03/23/2015, 10:03. FINDINGS: Surgical changes and devices: None. Lungs and pleura: No pleural effusions or pneumothorax. Lungs are clear. Mediastinum: Mediastinal contours appear normal. Heart size is normal. Bones and chest wall: No suspicious bony lesions. Overlying soft tissues appear unremarkable. IMPRESSION: Normal for age, source of current symptoms is not seen. Dictated by: Joel Chowdary M.D. on 04/24/2018 at 8:10 Approved by: Joel Chowdary M.D. on 04/24/2018 at 8:14 ECG Data Attestation: I personally reviewed and interpreted this ECG as follows: Prior ECG tracings: available for review Interpretation: Sinus rhythm with a rate of 76 P are 170 QRS of 126 and QTC of 482. No ST elevation or depression appreciated. Patient has prior EKG from which appears similar. EKG 2. Shows a sinus rhythm with a rate of 65 P are 160 QRS of 115 and QTC of 436. EKG appears similar to prior from earlier today. MDM Narrative Medical decision making narrative: Patient negative troponin with no major EKG changes. He does have risk factors with his age as well as hypertension. Otherwise no known cardiac history. I suspect that he has a viral pharyngitis but that this is likely the cause of his chest pain although possibly. Discussed with patient about possible observation versus 4 hr troponin and patient defers observation. Patient's heart score is 4. Spoke with Dr. Coughlin and felt that his chest pain is not necessarily cardiac in origin, he will also reveiw today's EKG's. We will plan to repeat troponin and EKG and did discuss the risks versus benefits with patient and as repeat and troponin are negative and showed no new changes Patient will follow up with Dr. Coughlin for short- term stress testing. Discharge Plan Departure Patient Disposition: Home Clinical Impression: Chest pain, Acute pharyngitis Discharge Date/Time: 04/24/18 10:08 Interventions: ED Discharge Assessment Last Done: 04/24/18 10:07 Instructions: DI for Chest Pain Activity Restrictions/Additional Instructions: Follow-up with Dr. Coughlin in the next 1-2 days for recheck. Call the office for an appointment. Dr. Coughlin is aware of your emergency room visit and is planning to set you up for stress testing in the short term. Continue your home medications as prescribed. Return to the emergency department for increasing chest pain, shortness of breath, passing out, difficulty breathing or other new or concerning symptoms. Prescriptions: No Action hydrochlorothiazide 25 MG tablet 25 mg PO QDAY Qty: 90 RF: 3 amlodipine [Norvasc] 10 mg tablet 10 mg PO QDAY Qty: 90 RF: 3 sildenafil (antihypertensive) 20 mg tablet See Label Instructions PO .COMPLEX PRN (Reason: sexual activity) Qty: 30 RF : 3 multivitamin Capsule 1 cap PO DAILY RF: 0 cholecalciferol (vitamin D3) [Vitamin D3] 400 unit Tablet 400 unit PO DAILY RF: 0 Referrals: Albino Coughlin MD [Primary Care Provider] -
[2018-04-24 08:45] VITALS: BP 117/74; PULSE 65; RESP 18; O2SAT 95
[2018-04-24 09:14] VITALS: BP 121/75; PULSE 66; RESP 14
[2018-04-24 09:38] LABS: Creatine Kinase 39 U/L (55-170)
[2018-04-24 09:51] LABS: Troponin I < 0.012 ng/mL (0.01-0.034)
[2018-04-24 10:07] VITALS: BP 123/77; PULSE 64; RESP 17; O2SAT 96
== END 2018-04-24 10:08 | disposition home or self-care (01) ==
PROVIDERS: Emergency Medicine; Emergency Provider Emergency Medicine; PCP Internal Medicine
DX: J02.9 Acute pharyngitis, unspecified (principal); R07.89 Other chest pain
CPT/HCPCS: 36415; 36591; 71045; 80053; 82550; 83690; 83880; 84484; 85025; 85610; 85730; 93005; 93010; 93041; 99283; 99285

== ENCOUNTER → 2019-02-26 09:50 | Outpatient (CLI) | payer MEDICARE, SELFPAY ==
[2019-02-26 11:00] LABS: Alanine Aminotransferase 28 IU/L (21-72); Albumin 4.2 g/dL (3.5-5.0); Albumin Globulin Ratio 1.5 (1.0-2.8); Alkaline Phosphatase 62 U/L (38-126); Aspartate Aminotransferase 36 IU/L (17-59); BUN Creatinine Ratio 17.5 (6-22); Bilirubin Total 1.1 mg/dL (0.2-1.3); Blood Urea Nitrogen 14 mg/dL (9-20); Calcium 9.6 mg/dL (8.4-10.2); Carbon Dioxide 31 mmol/L (22-32); Chloride 101 mmol/L (98-107); Cholesterol 168 mg/dL (140-199); Estimated Glomerular Filt Rate > 60.0 mL/min (>60); Globulin 2.8 g/dL (1.7-4.1); Glucose 86 mg/dL (80-110); HDL Cholesterol 49 mg/dL (40-60); HEMOLYSIS < 15 (0-50); LDL Cholesterol Calculated 107 mg/dL (<100); Potassium 3.7 mmol/L (3.4-5.1); Sodium 140 mmol/L (137-145); Triglycerides 58 mg/dL (35-150)
[2019-02-26 11:33] LABS: TSH w/ Reflex to FT4 1.48 uIU/mL (0.47-4.68)
== END ==
PROVIDERS: PCP Internal Medicine; Visit Provider Internal Medicine
DX: I10 Essential (primary) hypertension (principal); R00.2 Palpitations; R60.9 Edema, unspecified
CPT/HCPCS: 36415; 80053; 80061; 84443

== ENCOUNTER → 2019-10-29 10:02 | Outpatient (CLI) | payer MEDICARE, SELFPAY ==
[2019-10-29 11:50] LABS: BUN Creatinine Ratio 27.3 (6-22); Blood Urea Nitrogen 21 mg/dL (9-20); Calcium 9.8 mg/dL (8.4-10.2); Carbon Dioxide 28 mmol/L (22-32); Chloride 99 mmol/L (98-107); Estimated Glomerular Filt Rate > 60.0 mL/min (>60); Glucose 90 mg/dL (80-110); HEMOLYSIS < 15 (0-50); Potassium 3.8 mmol/L (3.4-5.1); Sodium 137 mmol/L (137-145)
[2019-10-29 12:03] LABS: Cholesterol 187 mg/dL (140-199); HDL Cholesterol 48 mg/dL (40-60); LDL Cholesterol Calculated 128 mg/dL (<100); Triglycerides 56 mg/dL (35-150)
== END ==
PROVIDERS: PCP Internal Medicine; Referring Provider Internal Medicine; Visit Provider Internal Medicine
DX: I10 Essential (primary) hypertension (principal); E78.5 Hyperlipidemia, unspecified
CPT/HCPCS: 36415; 80048; 80061

== ENCOUNTER → 2019-11-07 15:26 | Outpatient (CLI) | payer MEDICARE, SELFPAY ==
[2019-11-08 02:09] LABS: COVID19 Sendout Not Detected (Not Detect)
== END ==
PROVIDERS: PCP Internal Medicine; Visit Provider Physician Assistant
DX: Z01.818 Encounter for other preprocedural examination (principal)
CPT/HCPCS: 87635

== ENCOUNTER 2019-11-10 07:27 | Day surgery (SDC) | payer MEDICARE, SELFPAY ==
[2019-11-10] MEDS: PROPARACAINE 0.5% OPHTH SOL 2 DROPS EYE-OP (07:48)
[2019-11-10 07:50] VITALS: BMI 25.7
[2019-11-10] MEDS: CATARACT EYE COMPOUND (10 DROPS/SYRINGE) 3 DROPS EYE-OP (07:55)
[2019-11-10 07:58] VITALS: BP 152/80; PULSE 63; RESP 16; TEMP 36.8; O2SAT 98
--- NOTE | 2019-11-10 09:04 | P.OP_ITS ---
Operative Date/Time/Diagnoses Pre-op diagnosis: Nuclear Cataract Left eye Post-op diagnosis: same Procedure & Clinicians Same procedure as scheduled: Yes Surgeon: Ford Mendoza Anesthesia Type: MAC +/- and Sedation Operative Notes Procedure in detail: Patient brought to the operating suite. Tetracaine drops placed in the left eye. Patient was prepped and draped in sterile manner. Wire lid speculum was placed in the eye. Betadine drops were placed on the eye. This was irrigated. Lidocaine jelly was placed on the eye. A paracentesis port was created with a side-port blade. 0.1 mL 1% preservative free lidocaine was injected into the anterior chamber. The anterior chamber was deepened with viscoelastic. 2.6 mm keratome was used to create a temporal clear corneal incision. Cystotome and Utrata forceps were used to create continuous tear capsulorrhexis. Balanced salt solution was used to hydro dissect the nucleus. The phacoemulsification handpiece was inserted and the nucleus was removed using the stop and chop technique. The irrigation aspiration handpiece was inserted and the remaining cortex was removed. Anterior chamber was deepened with viscoe lastic. An Huggins ZCB00 intraocular lens with a power of 23.5 was injected into the capsular bag. Irrigation aspiration handpiece was inserted and the remaining viscoelastic was removed. Incision was hydrated with balanced salt solution and found to be leak free with pressure with Weck-Vera sponges. 0.1 mL Vigamox injected anterior chamber. 0.3 mL Kenalog 10 mg was injected subconjunctivally. Lid speculum was removed. The patient left the operating room in excellent condition. Complications: none Post-operative Condition: stable Disposition: same day surgery
--- NOTE | 2019-11-10 09:04 | PM.PREOP ---
Pre-operative Note Interval Note History & Physical reviewed/Exam performed by Physician: Yes Changes to H&P: No
[2019-11-10] MEDS: PHENYLEPHRINE/LIDOCAINE VIAL (OR) 0.2 ML EYE-OP (09:23)
[2019-11-10] MEDS: MOXIFLOXACIN INJ 5 MG/ML VIAL EYE-OP (09:24)
[2019-11-10] MEDS: TRIAMCINOLONE 50 MG/5 ML VIAL INJ (09:24)
[2019-11-10] MEDS: LIDOCAINE JELLY 2% 5 ML 1 APPLIC TOP (09:25)
[2019-11-10] MEDS: CHONDROIDTIN/SOD HYALURONATE 1.05 ML SYRINGE INTRAOCULA (09:25)
[2019-11-10] MEDS: TETRACAINE 0.5% OPHTH DROPS 4 ML 2 DROPS EYE-OP (09:25)
[2019-11-10] MEDS: BALANCED SALT IRRIG SOLN NO.2 500 ML, EPINEPHrine 1 MG IRR (09:26)
[2019-11-10 09:42] VITALS: BP 130/73; PULSE 52; RESP 16; TEMP 36.8; O2SAT 97
== END 2019-11-10 09:52 | disposition home or self-care (01) ==
PROVIDERS: PCP Internal Medicine; Referring Provider Ophthalmology; Visit Provider Ophthalmology
PROC: (CPT 66984; principal; 2019-11-10 09:15)
DX: H25.12 Age-related nuclear cataract, left eye (principal); I10 Essential (primary) hypertension
CPT/HCPCS: 66984; J0171; J2250; J3301

== ENCOUNTER → 2019-11-21 10:51 | Outpatient (CLI) | payer MEDICARE, SELFPAY ==
[2019-11-22 10:35] LABS: COVID19 Sendout Not Detected (Not Detect)
== END ==
PROVIDERS: PCP Internal Medicine; Visit Provider Physician Assistant
DX: Z01.812 Encounter for preprocedural laboratory examination (principal)
CPT/HCPCS: 87635

== ENCOUNTER 2019-11-24 06:24 | Day surgery (SDC) | payer MEDICARE, SELFPAY ==
[2019-11-24] MEDS: PROPARACAINE 0.5% OPHTH SOL 2 DROPS EYE-OP (07:16)
[2019-11-24 07:20] VITALS: BP 159/90; PULSE 81; RESP 16; TEMP 37.1; O2SAT 97; BMI 24.3
[2019-11-24] MEDS: CATARACT EYE COMPOUND (10 DROPS/SYRINGE) 3 DROPS EYE-OP (07:21)
--- NOTE | 2019-11-24 07:42 | P.OP_ITS ---
Operative Date/Time/Diagnoses Pre-op diagnosis: Nuclear cataract right eye Procedure & Clinicians Procedure: Cataract Surgery Same procedure as scheduled: Yes Surgeon: Ford Mendoza Anesthesia Type: MAC +/- and Sedation Operative Notes Procedure in detail: Patient brought to the operating suite. The was a delay because of problems with priming the phaco machine. This was resolved. Tetracaine drops placed in the right eye. Patient was prepped and draped in sterile manner. Wire lid speculum was placed in the eye. Betadine drops were placed on the eye. This was irrigated. Lidocaine jelly was placed on the eye. A paracentesis port was created with a side-port blade. 0.1 mL 1% preservative free lidocaine was injected into the anterior chamber. The anterior chamber was deepened with viscoelastic. 2.6 mm keratome was used to create a temporal clear corneal incision. Cystotome and Utrata forceps were used to create continuous te ar capsulorrhexis. Balanced salt solution was used to hydro dissect the nucleus. The phacoemulsification handpiece was inserted and the nucleus was removed using the stop and chop technique. The irrigation aspiration handpiece was inserted and the remaining cortex was removed. Anterior chamber was deepened with viscoelastic. An Huggins ZCB00 intraocular lens with a power of 23.5 was injected into the capsular bag. Irrigation aspiration handpiece was inserted and the remaining viscoelastic was removed. Incision was hydrated with balanced salt solution and found to be leak free with pressure with Weck-Vera sponges. 0.1 mL Vigamox injected anterior chamber. 0.3 mL Kenalog 10 mg was injected subconjunctivally. Lid speculum was removed. The patient left the operating room in excellent condition. Complications: none Post-operative Condition: stable Disposition: same day surgery
--- NOTE | 2019-11-24 07:42 | PM.PREOP ---
Pre-operative Note Interval Note History & Physical reviewed/Exam performed by Physician: Yes Changes to H&P: No
[2019-11-24] MEDS: MOXIFLOXACIN INJ 5 MG/ML VIAL EYE-OP (07:53)
[2019-11-24] MEDS: CHONDROIDTIN/SOD HYALURONATE 1.05 ML SYRINGE INTRAOCULA (07:53)
[2019-11-24] MEDS: LIDOCAINE JELLY 2% 5 ML 1 APPLIC TOP (07:53)
[2019-11-24] MEDS: PHENYLEPHRINE/LIDOCAINE VIAL (OR) 0.2 ML EYE-OP (07:54)
[2019-11-24] MEDS: TRIAMCINOLONE 50 MG/5 ML VIAL INJ (07:54)
[2019-11-24] MEDS: TETRACAINE 0.5% OPHTH DROPS 4 ML 2 DROPS EYE-OP (07:54)
[2019-11-24] MEDS: BALANCED SALT IRRIG SOLN NO.2 500 ML, EPINEPHrine 1 MG IRR (07:55)
[2019-11-24 08:30] VITALS: BP 139/82; PULSE 60; RESP 20; TEMP 36.6; O2SAT 95
== END 2019-11-24 08:36 | disposition home or self-care (01) ==
PROVIDERS: PCP Internal Medicine; Referring Provider Ophthalmology; Visit Provider Ophthalmology
PROC: (CPT 66984; principal; 2019-11-24 07:45)
DX: H25.11 Age-related nuclear cataract, right eye (principal); I10 Essential (primary) hypertension
CPT/HCPCS: 66984; J0171; J2250; J3010; J3301

== ENCOUNTER → 2020-09-01 13:07 | Outpatient (CLI) | payer MEDICARE, SELFPAY ==
[2020-09-01] MEDS: COVID-19 VACC, Ad26(JANSSEN)/PF 0.5 ML IM (13:20)
== END ==
PROVIDERS: PCP Internal Medicine; Visit Provider Internal Medicine
DX: Z23 Encounter for immunization (principal)
CPT/HCPCS: 0031A; 91303

== ENCOUNTER → 2020-09-16 09:05 | Outpatient (CLI) | payer MEDICARE, SELFPAY ==
[2020-09-16 10:41] LABS: Alanine Aminotransferase 20 IU/L (<50); Albumin 4.3 g/dL (3.5-5.0); Albumin Globulin Ratio 1.5 (1.0-2.8); Alkaline Phosphatase 75 U/L (38-126); Aspartate Aminotransferase 32 IU/L (17-59); BUN Creatinine Ratio 21.5 (6-22); Bilirubin Total 0.9 mg/dL (0.2-1.3); Blood Urea Nitrogen 17 mg/dL (9-20); Calcium 9.9 mg/dL (8.4-10.2); Carbon Dioxide 32 mmol/L (22-32); Chloride 99 mmol/L (98-107); Cholesterol 173 mg/dL (140-199); Estimated Glomerular Filt Rate > 60.0 mL/min (>60); Globulin 2.8 g/dL (1.7-4.1); Glucose 91 mg/dL (80-110); HDL Cholesterol 47 mg/dL (40-60); HEMOLYSIS < 15 (0-50); LDL Cholesterol Calculated 114 mg/dL (<100); Potassium 3.7 mmol/L (3.4-5.1); Sodium 137 mmol/L (137-145); Total Protein 7.1 g/dL (6.3-8.2); Triglycerides 60 mg/dL (35-150)
== END ==
PROVIDERS: PCP Internal Medicine; Referring Provider Internal Medicine; Visit Provider Internal Medicine
DX: I10 Essential (primary) hypertension (principal); L40.9 Psoriasis, unspecified; Z13.1 Encounter for screening for diabetes mellitus; Z13.220 Encounter for screening for lipoid disorders
CPT/HCPCS: 36415; 80053; 80061

== ENCOUNTER 2020-09-17 15:02 | Emergency (ER) | payer MEDICARE, SELFPAY ==
[2020-09-17] VITALS (8 sets, daily range): BP systolic 128–196; BP diastolic 71–112; PULSE 55–79; RESP 11–20; TEMP 36.6; O2SAT 97–99
--- NOTE | 2020-09-17 15:23 | DI.RAD.S_ITS ---
PROCEDURE: XR CHEST 1V INDICATIONS: Shortness of breath TECHNIQUE: One view of the chest was acquired. COMPARISON: [facility], CHEST 2 VIEW, 08/04/2015, 15:57. [facility], CHEST 1 VIEW, 03/23/2015, 10:03. [facility], , XR CHEST 1V, 04/24/2018, 7:24. FINDINGS: Surgical changes and devices: None. Lungs and pleura: Lungs are clear. No pleural effusions or pneumothorax. Mediastinum: The cardiac contours are within normal limits. The aorta demonstrates calcification and tortuosity. Bones and chest wall: No suspicious bony lesions. Age-appropriate bony degenerative changes are seen. Overlying soft tissues appear unremarkable. IMPRESSION: Portable chest study within normal limits for age. Dictated by: Juan Beauchamp M.D. on 09/17/2020 at 15:12 Approved by: Juan Beauchamp M.D. on 09/17/2020 at 15:13
--- NOTE | 2020-09-17 15:58 | ED.GENADULT ---
HPI - General Adult General Chief complaint: Shortness of Breath/Dyspnea Stated complaint: SOB, couple of days Time Seen by Provider: 09/17/20 15:46 Source: patient Mode of arrival: Ambulatory History of Present Illness HPI narrative: Patient is an 85-year-old male who is here for evaluation of shortness of breath. He states that for the past week he has noticed that he is slightly more short of breath when he is walking. He states that he normally walks 3-5 miles a day. He states he still is able to walk this distance and still thinks he can walk it at the same pace but when he is done he does feels like he is somewhat more short of breath. He denies any chest pain. He walk this distance this morning was able to complete it without any problems. He did have the Jorgito and Jorgito vaccine approximately 2 weeks ago. He has a history of high blood pressure. No other cardiac history. States he has been taking his medications. Related Data Home Medications Medication Instructions Recorded Confirmed multivitamin 1 cap PO DAILY 11/03/17 04/04/20 cholecalciferol (vitamin D3) 50 100 mcg PO DAILY cap 04/04/20 04/04/20 mcg (2,000 unit) capsule Previous Rx's Medication Instructions Recorded mometasone 0.1 % topical ointment 1 applictn TOP DAILY PRN #45 gram 11/03/19 amlodipine 10 mg tablet 10 mg PO QDAY #90 tab 07/26/20 hydrochlorothiazide 25 mg tablet 25 mg PO QDAY #90 tab 07/26/20 Allergies Allergy/AdvReac Type Severity Reaction Status Date / Time aspirin Allergy Severe THROAT Verified 04/04/20 09:19 SWELLING ibuprofen Allergy Intermediate HIVES Verified 04/04/20 09:19 naproxen Allergy Intermediate HIVES Verified 04/04/20 09:19 lisinopril AdvReac Mild COUGH Verified 04/04/20 09:19 metronidazole AdvReac Mild NAUSEA Verified 04/04/20 09:19 Review of Systems Constitutional Constitutional: Denies fatigue, Denies fever(s) and Denies headache(s) ENT Ears, Nose, Mouth, and Throat: Denies headache(s) Cardiovascular Cardiovascular: Denies chest pain, Denies pedal edema, Denies leg edema, Denies lightheadedness, Reports dyspnea on exertion and Denies orthopnea Respiratory Respiratory: Denies cough and Reports dyspnea on exertion Gastrointestinal Gastrointestinal: Denies abdominal pain, Denies nausea and Denies vomiting Genitourinary Genitourinary: Denies dysuria Genitourinary: Denies dysuria Musculoskeletal Musculoskeletal: Denies arthralgias and Denies myalgias Integumentary/Breasts Skin/Breast: Denies lesions and Denies rash Neurologic Neurologic: Denies behavioral changes and Denies headache(s) Psychiatric Psychiatric: Denies behavioral changes Endocrine Endocrine: Denies fatigue Hematologic/Lymphatic On Anticoagulants: No Allergic/Immunologic Allergic/Immunologic: Denies urticaria Patient History Medical History Essential hypertension (04/09/11) Hypertension Palpitations Psoriasis (04/09/11) Psoriasis Surgical History Status post transurethral resection of prostate Family History Father Family history of diabetes mellitus (DM) Sister Family history of diabetes mellitus (DM) Family/Other Family history of diabetes mellitus (DM) Social History marital status: number of children: 2 household members: none lives independently: Yes caregiver/support person: No housing: house pets and animals: Yes (Fish) 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[employer], 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.) occupational status: other (Retired) Previous occupational history: [employer] leisure activities: exercise (Walking.), 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, Boating.) Smoking Status: Former smoker Tobacco: How many years used: 2 Smokeless tobacco user: other (Cigarettes) quit status: quit date established (~1969) second hand exposure: Yes alcohol intake: current substance use type: does not use Smoking Status: Former smoker alcohol intake frequency: 0-2 drinks per day Substance Use Type: does not use Exam Initial Vital Signs Initial Vital Signs: Vital Signs Temperature 97.8 F 09/17/20 15:05 Pulse Rate 76 09/17/20 15:05 Respiratory Rate 18 09/17/20 15:05 Blood Pressure 196/112 H 09/17/20 15:05 Pulse Oximetry 99 09/17/20 15:05 Const General: cooperative and comfortable Limitations: mental status not altered HENIL Head: normal to inspection and normocephalic Eyes General: appearance normal, both eyes and all related structures Chest Chest: No crepitus Resp Effort & Inspection: normal respiratory effort Auscultation: clear to auscultation bilaterally Cardio Rate: regular rate Rhythm: regular rhythm GI Inspection: non-distended Palpation: soft and No firm Skin Lesions: no lesions Rashes: no rashes Neuro General: patient alert, patient awake and patient oriented x3 Cognition: normal cognition Speech: speech normal Motor: muscle tone normal throughout Extrem General: normal to inspection, capillary refill normal and No edema Psych Appearance: grossly normal and well kempt Scores HEART Score Heart Score history: Slightly Suspicious Heart Score EKG: Normal Heart Score Age: > or = 65 years old Heart Score risk factors: 1-2 risk factors Heart Score troponin: < or = to normal limit Heart Score Total: 3 Course Orders Ordered: ED Orders 09/17/20 15:23 XR chest 1V Stat 09/17/20 15:28 EKG-12 Lead Stat 09/17/20 15:50 Complete Blood Count AUTO DIFF Stat Comprehensive Metabolic Panel Stat D Dimer Stat Lipase Stat NT-proBNP (BNP-Adult 18+) Stat Partial Thromboplastin Time Stat Prothrombin Time INR Stat Troponin & CK Cardiac Panel Stat Vital Signs Vital signs: Vital Signs - 8 hr 09/17/20 15:05 09/17/20 16:15 09/17/20 16:16 Temperature 97.8 F Pulse Rate 76 61 67 Respiratory Rate 18 20 20 Blood Pressure 196/112 H 171/82 H Pulse Oximetry 99 97 98 09/17/20 16:30 09/17/20 16:31 09/17/20 16:32 Temperature Pulse Rate 76 77 79 Respiratory Rate 19 13 Blood Pressure 165/83 H Pulse Oximetry 97 98 09/17/20 17:00 09/17/20 17:30 Temperature Pulse Rate 59 L 55 L Respiratory Rate 14 11 L Blood Pressure 131/73 128/71 Pulse Oximetry 97 97 Medical Decision Making Lab Data Lab results reviewed: Yes I reviewed the patient's lab results. Result diagrams: 09/17/20 15:50 09/17/20 15:50 Labs: Lab Results 09/17/20 09/17/20 09/17/20 Range/Units 15:50 15:50 15:50 WBC 5.2 (4.5-11.0) X10^3/uL RBC 5.11 (4.5-5.9) X10^6/uL Hgb 15.1 (13.5-17.5) g/dL Hct 43.9 (41-53) % MCV 86.0 (80-100) fL MCH 29.5 (26-34) PG MCHC 34.3 (30-36) % RDW 13.5 (11.6-14.8) % Plt Count 164 (150-400) X10^3/uL Neut % (Auto) 61.6 (50-75) % Lymph % (Auto) 23.0 L (25-40) % [place] % (Auto) 10.6 (3-14) % Eos % (Auto) 3.9 (2-4) % Baso % (Auto) 0.9 (0-2) % Neut # (Auto) 3200 (3551-3624) /uL Lymph # (Auto) 1200 (3189-2051) /uL [place] # (Auto) 600 (0-900) /uL Eos # (Auto) 200 (0-450) /uL Baso # (Auto) 0 (0-100) /uL PT 11.6 (10.1-12.7) SECONDS INR 1.0 (0.9-1.3) APTT 28 D (26.4-36.2) SECONDS D-Dimer < 200 (<230) ng/mL Sodium 137 (137-145) mmol/L Potassium 3.6 (3.4-5.1) mmol/L Chloride 100 (98-107) mmol/L Carbon Dioxide 27 (22-32) mmol/L BUN 16 (9-20) mg/dL Creatinine 0.68 (0.66-1.25) mg/dL Estimated GFR > 60.0 (>60) mL/min BUN/Creatinine Ratio 23.5 H (6-22) Glucose 98 (80-110) mg/dL Calcium 9.9 (8.4-10.2) mg/dL Total Bilirubin 0.8 (0.2-1.3) mg/dL AST 35 (17-59) IU/L ALT 23 (<50) IU/L Alkaline Phosphatase 82 (38-126) U/L Total Creatine Kinase 62 (55-170) U/L CK-MB (CK-2) TNP CK-MB (CK-2) Rel Index TNP Troponin I < 0.012 (0.01-0.034) ng/mL NT-Pro-B Natriuret Pep 206 (<450) pg/mL Total Protein 7.9 (6.3-8.2) g/dL Albumin 4.6 (3.5-5.0) g/dL Globulin 3.3 (1.7-4.1) g/dL Albumin/Globulin Ratio 1.4 (1.0-2.8) Lipase 70 (23-300) U/L Imaging Data Chest x-ray: Radiologist's Impression: [place] [id number] [place] [id number] ReportSigned Patient: Devante Mabry AMR#: [id number]: 8Acct:[id number]/Sex: 85 / MDate of Service: 09/17/20Loc: EDAccession Number: [id number] Procedure: XR chest 1V Ordering Provider: Wenceslao Galindo D.O. PROCEDURE: XR CHEST 1V INDICATIONS: Shortness of breath TECHNIQUE: One view of the chest was acquired. COMPARISON: [facility], CHEST 2 VIEW, 08/04/2015, 15:57. [facility], CHEST 1 VIEW, 03/23/2015, 10:03. [facility], XR CHEST 1V, 04/24/2018, 7:24. FINDINGS: Surgical changes and devices: None. Lungs and pleura: Lungs are clear. No pleural effusions or pneumothorax. Mediastinum: The cardiac contours are within normal limits. The aorta demonstrates calcification and tortuosity. Bones and chest wall: No suspicious bony lesions. Age-appropriate bony degenerative changes are seen. Overlying soft tissues appear unremarkable. IMPRESSION: Portable chest study within normal limits for age. Dictated by: Juan Beauchamp M.D. on 09/17/2020 at 15:12 Approved by: Juan Beauchamp M.D. on 09/17/2020 at 15:13 ECG Data Attestation: I personally reviewed and interpreted this ECG as follows: Prior ECG tracings: not available for review Interpretation: Sinus rhythm Ventricular rate is 64 Normal axis Normal QRS No ST T wave changes MDM Narrative Medical decision making narrative: Chest x-ray is unremarkable. EKG is unremarkable. Has a low risk heart score. Denies chest pain. He states that despite his shortness of breath he is able to walk as fast as far as what he normally does. His troponin was negative. D-dimer is negative. Discussed with him options to include be discharged home and follow-up with his primary doctor for an outpatient stress test. We discussed stain emergency department for 2nd troponin are also being admitted to the hospital for further risk stratification testing. After this discussion the patient opted to be discharged home without further workup. He has been contact his primary doctor on Saturday for follow-up. He was given strict return precautions. He expressed understanding and agreement. Discharge Plan Departure Patient Disposition: Home Clinical Impression: Dyspnea on exertion Instructions: DI for Shortness of Breath Activity Restrictions/Additional Instructions: Take all of your medications as directed. I do recommend on Saturday you contact your primary provider for a follow-up. Return to the emergency department for any new or worsening symptoms Prescriptions: No Action amlodipine [Norvasc] 10 mg tablet 10 mg PO QDAY Qty: 90 RF: 3 hydrochlorothiazide 25 mg tablet 25 mg PO QDAY Qty: 90 RF: 3 mometasone 0.1 % ointment 1 applictn TOP DAILY PRN (Reason: rash) Qty: 45 RF: 2 cholecalciferol (vitamin D3) 50 mcg (2,000 unit) capsule 100 mcg PO DAILY RF: 0 multivitamin Capsule 1 cap PO DAILY RF: 0 Referrals: Albino Coughlin MD [Primary Care Provider] -
[2020-09-17 16:13] LABS: Add Manual Diff / Slide Review NO; Basophils Absolute Auto 0 /uL (0-100); Basophils Percent Auto 0.9 % (0-2); Eosinophils Absolute Auto 200 /uL (0-450); Eosinophils Percent Auto 3.9 % (2-4); Hematocrit 43.9 % (41-53); Hemoglobin 15.1 g/dL (13.5-17.5); Lymphocytes Absolute Auto 1200 /uL (1100-4500); Mean Corpuscular HGB Conc 34.3 % (30-36); Mean Corpuscular Hemoglobin 29.5 PG (26-34); Monocytes Absolute Auto 600 /uL (0-900); Monocytes Percent Auto 10.6 % (3-14); Neutrophils Absolute Auto 3200 /uL (1500-7000); Neutrophils Percent Auto 61.6 % (50-75); Platelet Count 164 X10^3/uL (150-400); Red Blood Cell Count 5.11 X10^6/uL (4.5-5.9); Red Cell Distribution Width 13.5 % (11.6-14.8); White Blood Cell Count 5.2 X10^3/uL (4.5-11.0)
[2020-09-17 16:14] LABS: Prothrombin Time 11.6 SECONDS (10.1-12.7)
[2020-09-17 16:16] LABS: PTT Partial Thromboplastin Tim 28 SECONDS (26.4-36.2)
[2020-09-17 16:18] LABS: Alanine Aminotransferase 23 IU/L (<50); Albumin 4.6 g/dL (3.5-5.0); Albumin Globulin Ratio 1.4 (1.0-2.8); Alkaline Phosphatase 82 U/L (38-126); Aspartate Aminotransferase 35 IU/L (17-59); BUN Creatinine Ratio 23.5 (6-22); Bilirubin Total 0.8 mg/dL (0.2-1.3); Blood Urea Nitrogen 16 mg/dL (9-20); Calcium 9.9 mg/dL (8.4-10.2); Carbon Dioxide 27 mmol/L (22-32); Chloride 100 mmol/L (98-107); Creatine Kinase 62 U/L (55-170); Estimated Glomerular Filt Rate > 60.0 mL/min (>60); Globulin 3.3 g/dL (1.7-4.1); Glucose 98 mg/dL (80-110); HEMOLYSIS < 15 (0-50); Lipase 70 U/L (23-300); Potassium 3.6 mmol/L (3.4-5.1); Sodium 137 mmol/L (137-145); Total Protein 7.9 g/dL (6.3-8.2)
[2020-09-17 16:29] LABS: NT-proBNP (BNP-Adult 18+) 206 pg/mL (<450); Troponin I < 0.012 ng/mL (0.01-0.034)
[2020-09-17 16:40] LABS: D Dimer < 200 ng/mL (<230)
== END 2020-09-17 17:57 | disposition home or self-care (01) ==
PROVIDERS: Emergency Provider Emergency Medicine; PCP Internal Medicine
DX: R06.00 Dyspnea, unspecified (principal); I10 Essential (primary) hypertension
CPT/HCPCS: 36415; 71045; 80053; 82550; 83690; 83880; 84484; 85025; 85379; 85610; 85730; 93005; 93010; 99283; 99284

== ENCOUNTER → 2020-10-06 09:40 | Outpatient (CLI) | payer MEDICARE, SELFPAY ==
--- NOTE | 2020-11-02 09:01 | P.HOLT.S_ITS ---
Application Support Administrator Report Referral & Results Date Patient Seen: 10/06/20 Requesting provider: Albino Coughlin Indication: Bradycardia Duration of monitoring (days): 7 Diary information: There were 6 patient diary events and 6 patient triggered events Patient diary events and patient triggered events were all associated (within 45 seconds) sinus rhythm, PVCs including ventricular bigeminy and PACs Data: Minimum heart rate identified was 39 beats per minute at 06:01 on 10/12/2020 Maximum sinus heart rate was 125 beats per minute at 14:10 on 10/08/2020 Maximum overall heart rate was 162 beats per minute at 17:14 on 10/12/2020 during an 18.9 second run of SVT Less than 1% of identified beats were ventricular or supraventricular ectopic in origin, which would classify them as rare. 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 Very rare very brief runs of SVT
== END ==
PROVIDERS: PCP Internal Medicine; Referring Provider Internal Medicine; Visit Provider Internal Medicine
DX: R00.1 Bradycardia, unspecified (principal)
CPT/HCPCS: 93242; 93244

== ENCOUNTER → 2020-10-12 09:18 | Outpatient (CLI) | payer MEDICARE, SELFPAY ==
[2020-10-12 11:26] LABS: COVID19 -Nasal RAPID Negative (Negative)
== END ==
PROVIDERS: PCP Internal Medicine; Referring Provider Physician Assistant; Visit Provider Physician Assistant
DX: Z01.812 Encounter for preprocedural laboratory examination (principal); Z20.822 Contact with and (suspected) exposure to COVID-19
CPT/HCPCS: 87635; C9803

== ENCOUNTER → 2020-10-14 13:09 | Outpatient (CLI) | payer MEDICARE, SELFPAY ==
--- NOTE | 2020-10-14 14:20 | P.PCN_ITS ---
Cardiac Stress Test Report Referral & Results Date Patient Seen: 10/14/20 Requesting provider: Albino Coughlin Indication: Shortness of breath Rest ECG: Frequent PVCs including extended runs of ventricular bigeminy Procedure Note: Today following both written and verbal informed consent, the patient was exercised according to a standard Bharat protocol. The patient exer cised for a total of 9 minutes 3 seconds achieving a maximum heart rate of 142. Patient's maximum systolic blood pressure was 168. This was an estimated 10.1 MET's. Patient had runs of ventricular bigeminy as well as frequent PVCs. This occurred both during exercise and at rest and in recovery. Function aerobic impairment is way way way off the scale. I estimate capacity equal to that of an active 60-year-old or about-150%, and patient could certainly be continued on the treadmill longer I stopped early because of the duration No ST-T segment changes suggestive of ischemia. Has some nonspecific changes at and exercise that rapidly reversed to return to normal but suggesting there nonischemic nature Somewhat slow heart rate response but ultimately normal heart rate and blood pr essure response to exercise Impression: No evidence of ischemia Amazing exercise capacity Review of patient's 7 day eyeglass maker which was only returned via mail yesterday will be I think very interesting. Discussed this with the patient that time of treadmill Please note: Actual ECG tracings can be found in the PACS system.
== END ==
PROVIDERS: PCP Internal Medicine; Referring Provider Internal Medicine; Visit Provider Internal Medicine
DX: R06.02 Shortness of breath (principal); M79.602 Pain in left arm
CPT/HCPCS: 93016; 93017; 93018

== ENCOUNTER → 2020-12-12 11:25 | Outpatient (CLI) | payer MEDICARE, SELFPAY ==
[2020-12-12 13:18] LABS: COVID19 -Nasal RAPID Negative (Negative)
== END ==
PROVIDERS: PCP Internal Medicine; Visit Provider Student in an Organized Health Care Education/Training Program
DX: R05 Cough (principal); R50.9 Fever, unspecified; Z20.822 Contact with and (suspected) exposure to COVID-19
CPT/HCPCS: 87635

== ENCOUNTER 2021-01-23 12:48 | Emergency (ER) | payer MEDICARE, SELFPAY ==
[2021-01-23] VITALS (9 sets, daily range): BP systolic 162–229; BP diastolic 77–108; PULSE 32–72; RESP 16; TEMP 36.4; O2SAT 96–100; BMI 23.6
[2021-01-23 13:26] LABS: Add Manual Diff / Slide Review NO; Basophils Absolute Auto 0 /uL (0-100); Basophils Percent Auto 0.7 % (0-2); Eosinophils Absolute Auto 200 /uL (0-450); Eosinophils Percent Auto 3.8 % (2-4); Hematocrit 44.8 % (41-53); Hemoglobin 15.1 g/dL (13.5-17.5); Lymphocytes Absolute Auto 1600 /uL (1100-4500); Mean Corpuscular HGB Conc 33.7 % (30-36); Mean Corpuscular Hemoglobin 29.3 PG (26-34); Mean Corpuscular Volume 86.9 fL (80-100); Monocytes Absolute Auto 600 /uL (0-900); Monocytes Percent Auto 11.2 % (3-14); Neutrophils Absolute Auto 3200 /uL (1500-7000); Neutrophils Percent Auto 56.3 % (50-75); Platelet Count 158 X10^3/uL (150-400); Red Blood Cell Count 5.15 X10^6/uL (4.5-5.9); Red Cell Distribution Width 14.1 % (11.6-14.8); White Blood Cell Count 5.6 X10^3/uL (4.5-11.0)
[2021-01-23 13:43] LABS: Alanine Aminotransferase 30 IU/L (<50); Albumin 4.6 g/dL (3.5-5.0); Albumin Globulin Ratio 1.5 (1.0-2.8); Alkaline Phosphatase 70 U/L (38-126); Aspartate Aminotransferase 36 IU/L (17-59); BUN Creatinine Ratio 22.9 (6-22); Bilirubin Total 0.9 mg/dL (0.2-1.3); Blood Urea Nitrogen 16 mg/dL (9-20); Calcium 9.8 mg/dL (8.4-10.2); Carbon Dioxide 30 mmol/L (22-32); Chloride 104 mmol/L (98-107); Creatine Kinase 48 U/L (55-170); Estimated Glomerular Filt Rate > 60.0 mL/min (>60); Globulin 3.1 g/dL (1.7-4.1); Glucose 106 mg/dL (80-110); HEMOLYSIS < 15 (0-50); Lipase 61 U/L (23-300); Magnesium 2.1 mg/dL (1.6-2.3); Potassium 4.1 mmol/L (3.4-5.1); Sodium 139 mmol/L (137-145); Total Protein 7.7 g/dL (6.3-8.2)
[2021-01-23 13:52] LABS: Troponin I < 0.012 ng/mL (0.01-0.034)
--- NOTE | 2021-01-23 14:22 | ED_ITS ---
HPI - General Adult General Chief complaint: Hypertension Stated complaint: High BP Time Seen by Provider: 01/23/21 13:17 History of Present Illness HPI narrative: Patient is a 85-year-old male with history of hypertension on hydrochlorothiazide and previously on amlodipine, presenting today with hypertension. He has kept regular checkup his blood pressures and heart rate since September. He noticed when he was on amlodipine his diastolic was in the 60s he felt a little dizzy and lightheaded. He and disposition discussed stopping the amlodipine which he did. He then did go on vacation for a month or he did not track anything but came back in November and continue to track his blood pressures and heart rate. His blood pressure started to rise 130s over 70s. He did have some heart rates in the 40s but mostly in the 50s. He was feeling okay. Today he checked his blood pressure systolic in the 180s. Here in the emergency department he has a systolic of 229 1. With 8. Also noted to have some bradycardia in the 30s. He is immediately hooked up to the monitor he is in sinus rhythm. Chart review does show he had a Holter monitor for bradycardia gross 7 days. Minimum heart rate was 39. He denies any chest pain, no shortness of breath, no palpitations no dizziness no lightheadedness no numbness tingling weakness nausea vomiting or diarrhea. Who overall feels well and is w orried about his blood pressure. Related Data Home Medications Medication Instructions Recorded Confirmed multivitamin 1 cap PO DAILY 11/03/17 10/03/20 cholecalciferol (vitamin D3) 50 100 mcg PO DAILY cap 04/04/20 10/03/20 mcg (2,000 unit) capsule Previous Rx's Medication Instructions Recorded mometasone 0.1 % topical ointment 1 applictn TOP DAILY PRN #45 gram 11/03/19 amlodipine 10 mg tablet (Norvasc) 10 mg PO QDAY #90 tab 07/26/20 hydrochlorothiazide 25 mg tablet 25 mg PO QDAY #90 tab 07/26/20 Allergies Allergy/AdvReac Type Severity Reaction Status Date / Time aspirin Allergy Severe THROAT Verified 10/03/20 09:02 SWELLING ibuprofen Allergy Intermediate HIVES Verified 10/03/20 09:02 naproxen Allergy Intermediate HIVES Verified 10/03/20 09:02 lisinopril AdvReac Mild COUGH Verified 10/03/20 09:02 metronidazole AdvReac Mild NAUSEA Verified 10/03/20 09:02 Review of Systems Review of Systems Narrative: GENERAL: Denies chills, fatigue, malaise, fever, sweats, travel HEENT: Denies sinus pain, ear pain, sore throat, difficulty swallowing, neck pain RESPIRATORY: Denies dyspnea, cough, wheezing, hemoptysis, sputum. CARDIOVASCULAR: Denies chest pain, palpitations, orthopnea, edema GASTROINTESTINAL: Denies nausea, vomiting, abdominal pain, diarrhea, constipation, melena. : Denies dysuria, frequency, incontinence, hematuria, urinary retention, flank pain. MUSCULOSKELETAL: Denies weakness, joint pain, or bony pain SKIN: No rash, no erythema, no pruritus NEUROLOGIC: Denies weakness, dizziness, headache, numbness, change in speech, confusion PSYCHIATRIC: No concerning psychosocial issues. 12 point review of systems is negative except for those stated above and HPI Patient History Medical History (Updated 01/23/21 @ 15:36 by Betty Pacheco DO) Essential hypertension (04/09/11) Hypertension Palpitations Psoriasis (04/09/11) Psoriasis Surgical History Status post transurethral resection of prostate Family History Father Family history of diabetes mellitus (DM) Sister Family history of diabetes mellitus (DM) Family/Other Family history of diabetes mellitus (DM) Social History marital status: number of children: 2 household members: none lives independently: Yes caregiver/support person: No housing: house pets and animals: Yes (Fish) 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[employer], 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.) occupational status: other (Retired) Previous occupational history: [employer] leisure activities: exercise (Walking.), 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, 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.) Smoking Status: Former smoker Tobacco: How many years used: 2 Smokeless tobacco user: other (Cigarettes) quit status: quit date established (~1969) second hand exposure: Yes alcohol intake: current substance use type: does not use Smoking Status: Former smoker alcohol intake frequency: 0-2 drinks per day Substance Use Type: does not use Exam Initial Vital Signs Initial Vital Signs: Vital Signs Temperature 97.6 F 01/23/21 13:00 Pulse Rate 64 01/23/21 13:00 Respiratory Rate 16 01/23/21 13:00 Blood Pressure 229/108 H 01/23/21 13:00 Pulse Oximetry 97 01/23/21 13:00 GENERAL: Alert well-appearing 85-year-old male very good historian HEENT: Head atraumatic,EOMI, pupils reactive, face symmetric, moist mucous membranes CARDIOVASCULAR: Regular rate and rhythm without murmurs, rubs or gallops. RESPIRATORY: Breath sounds equal bilaterally, no wheezes rales or rhonchi. ABDOMEN: Soft, nontender. Normoactive bowel sounds all 4 quadrants. No guarding or rebound. EXTREMITIES: Normal range of motion, no clubbing or edema. Neurovascularly intact NEUROLOGICAL: Alert and oriented x4 SKIN: Warm, dry, no laceration, no petechiae, no rashes or lesions. Course Orders Ordered: ED Orders 01/23/21 13:01 EKG-12 Lead Stat 01/23/21 13:15 Complete Blood Count AUTO DIFF Stat Comprehensive Metabolic Panel Stat Lipase Stat Magnesium Stat Troponin & CK Cardiac Panel Stat Vital Signs Vital signs: Vital Signs - 8 hr 01/23/21 13:00 01/23/21 13:09 01/23/21 13:20 Temperature 97.6 F Pulse Rate 64 32 L 51 L Respiratory Rate 16 Blood Pressure 229/108 H 187/86 H Pulse Oximetry 97 98 98 01/23/21 13:30 01/23/21 14:00 01/23/21 14:01 Temperature Pulse Rate 72 51 L 52 L Respiratory Rate Blood Pressure 192/98 H 185/81 H Pulse Oximetry 99 98 98 01/23/21 14:30 01/23/21 14:31 Temperature Pulse Rate 50 L 53 L Respiratory Rate 16 Blood Pressure 162/77 H Pulse Oximetry 96 98 Medical Decision Making Lab Data Result diagrams: 01/23/21 13:15 01/23/21 13:15 Labs: Lab Results 01/23/21 01/23/21 Range/Units 13:15 13:15 WBC 5.6 (4.5-11.0) X10^3/uL RBC 5.15 (4.5-5.9) X10^6/uL Hgb 15.1 (13.5-17.5) g/dL Hct 44.8 (41-53) % MCV 86.9 (80-100) fL MCH 29.3 (26-34) PG MCHC 33.7 (30-36) % RDW 14.1 (11.6-14.8) % Plt Count 158 (150-400) X10^3/uL Neut % (Auto) 56.3 (50-75) % Lymph % (Auto) 28.0 (25-40) % [place] % (Auto) 11.2 (3-14) % Eos % (Auto) 3.8 (2-4) % Baso % (Auto) 0.7 (0-2) % Neut # (Auto) 3200 (1641-1322) /uL Lymph # (Auto) 1600 (2894-6232) /uL [place] # (Auto) 600 (0-900) /uL Eos # (Auto) 200 (0-450) /uL Baso # (Auto) 0 (0-100) /uL Sodium 139 (137-145) mmol/L Potassium 4.1 (3.4-5.1) mmol/L Chloride 104 (98-107) mmol/L Carbon Dioxide 30 (22-32) mmol/L BUN 16 (9-20) mg/dL Creatinine 0.70 (0.66-1.25) mg/dL Estimated GFR > 60.0 (>60) mL/min BUN/Creatinine Ratio 22.9 H (6-22) Glucose 106 (80-110) mg/dL Calcium 9.8 (8.4-10.2) mg/dL Magnesium 2.1 (1.6-2.3) mg/dL Total Bilirubin 0.9 (0.2-1.3) mg/dL AST 36 (17-59) IU/L ALT 30 (<50) IU/L Alkaline Phosphatase 70 (38-126) U/L Total Creatine Kinase 48 L (55-170) U/L CK-MB (CK-2) TNP CK-MB (CK-2) Rel Index TNP Troponin I < 0.012 (0.01-0.034) ng/mL Total Protein 7.7 (6.3-8.2) g/dL Albumin 4.6 (3.5-5.0) g/dL Globulin 3.1 (1.7-4.1) g/dL Albumin/Globulin Ratio 1.5 (1.0-2.8) Lipase 61 (23-300) U/L ECG Data Interpretation: Bigeminy MT interval 170 QTC 450 MDM Narrative Medical decision making narrative: EKG does show bigeminy but quickly turns into normal sinus rhythm on the monitor. Patient's blood pressure does improve without any intervention. He has no sign of end-organ damage. He has kept good record of his blood pressures for the last 2 months and has gradually started to increase his was taken off the amlodipine. At this time I recommend he restart amlodipine is at 5 mg daily. I have discussed this plan his primary care provider Dr. Coughlin who agrees and will happily follow up with him in clinic. Discharge Plan Departure Patient Disposition: Home Clinical Impression: Essential hypertension Instructions: DI for High Blood Pressure Activity Restrictions/Additional Instructions: *You have been diagnosed with hypertension *What to do: At this time please follow-up with Dr. Coughlin. We will restart your amlodipine but at 5 mg. Please continue to do a great job of monitoring her blood pressure and heart rate *Continue to take medications as directed Amlodipine 5 mg daily Hydrochlorothiazide 25 mg daily *Follow up with your primary care provider in 2-3 days *Return to ER if you should have dizziness, lightheadedness, passing out, chest pain, shortness of breath, blood pressure persistently greater than 185/100, heart rate in the low 40s or 30 or any new, worsening or concerning symptoms Prescriptions: No Action amlodipine [Norvasc] 10 mg tablet 10 mg PO QDAY Qty: 90 RF: 3 hydrochlorothiazide 25 mg tablet 25 mg PO QDAY Qty: 90 RF: 3 mometasone 0.1 % ointment 1 applictn TOP DAILY PRN (Reason: rash) Qty: 45 RF: 2 cholecalciferol (vitamin D3) 50 mcg (2,000 unit) capsule 100 mcg PO DAILY RF: 0 multivitamin Capsule 1 cap PO DAILY RF: 0 Referrals: Albino Coughlin MD [Primary Care Provider] -
== END 2021-01-23 15:50 | disposition home or self-care (01) ==
PROVIDERS: Emergency Provider Emergency Medicine; PCP Internal Medicine
DX: I10 Essential (primary) hypertension (principal); R07.9 Chest pain, unspecified
CPT/HCPCS: 36415; 80053; 82550; 83690; 83735; 84484; 85025; 93005; 99283; 99284

== ENCOUNTER → 2022-03-24 09:25 | Outpatient (CLI) | payer MEDICARE, SELFPAY ==
[2022-03-24 13:55] LABS: Alanine Aminotransferase 23 IU/L (<50); Albumin 4.2 g/dL (3.5-5.0); Albumin Globulin Ratio 1.3 (1.0-2.8); Alkaline Phosphatase 69 U/L (38-126); Aspartate Aminotransferase 28 IU/L (17-59); BUN Creatinine Ratio 16.1 (6-22); Bilirubin Total 0.7 mg/dL (0.2-1.3); Blood Urea Nitrogen 14 mg/dL (9-20); Calcium 9.1 mg/dL (8.4-10.2); Carbon Dioxide 32 mmol/L (22-32); Chloride 97 mmol/L (98-107); Cholesterol 178 mg/dL (140-199); Estimated Glomerular Filt Rate > 60 mL/min (>60); Globulin 3.2 g/dL (1.7-4.1); Glucose 83 mg/dL (80-110); HDL Cholesterol 44 mg/dL (40-60); HEMOLYSIS < 15 (0-50); LDL Cholesterol Calculated 124 mg/dL (<100); Potassium 3.5 mmol/L (3.4-5.1); Sodium 138 mmol/L (137-145); Total Protein 7.4 g/dL (6.3-8.2); Triglycerides 48 mg/dL (35-150)
[2022-03-24 17:36] LABS: Vitamin D 25 Hydroxy (D3) 72.9 ng/mL (30.0-100.0)
== END ==
PROVIDERS: PCP Internal Medicine; Referring Provider Internal Medicine; Visit Provider Internal Medicine
DX: I10 Essential (primary) hypertension (principal); E55.9 Vitamin D deficiency, unspecified; R60.9 Edema, unspecified
CPT/HCPCS: 36415; 80053; 80061; 82306

== ENCOUNTER → 2022-07-05 11:48 | Outpatient (CLI) | payer MEDICARE, OTHER, SELFPAY ==
--- NOTE | 2022-07-05 11:54 | DI.RAD.S_ITS ---
PROCEDURE: XR CHEST 2V INDICATIONS: dizziness TECHNIQUE: 2 views of the chest were acquired. COMPARISON: [facility], CR, XR CHEST 1V, 09/17/2020, 15:26. [facility], CR, XR CHEST 1V, 04/24/2018, 7:24. FINDINGS: Surgical changes and devices: None. Lungs and pleura: Lungs are clear. No pleural effusions or pneumothorax. Mediastinum: Mediastinal and hilar contours appear similar to before. Heart size is normal. Bones and chest wall: No suspicious bony abnormalities. Soft tissues appear unremarkable. IMPRESSION: No acute cardiopulmonary abnormality. Dictated by: Baislio Crocker M.D. on 07/06/2022 at 9:34 Approved by: Basilio Crocker M.D. on 07/06/2022 at 9:35
[2022-07-05 13:09] LABS: Add Manual Diff / Slide Review NO; Basophils Absolute Auto 0 /uL (0-100); Basophils Percent Auto 0.9 % (0-2); Eosinophils Absolute Auto 200 /uL (0-450); Eosinophils Percent Auto 4.5 % (2-4); Hematocrit 44.1 % (41-53); Hemoglobin 14.8 g/dL (13.5-17.5); Lymphocytes Absolute Auto 1200 /uL (1100-4500); Lymphocytes Percent Auto 27.3 % (25-40); Mean Corpuscular HGB Conc 33.5 % (30-36); Mean Corpuscular Hemoglobin 28.6 PG (26-34); Mean Corpuscular Volume 85.3 fL (80-100); Monocytes Absolute Auto 600 /uL (0-900); Monocytes Percent Auto 13.6 % (3-14); Neutrophils Absolute Auto 2300 /uL (1500-7000); Neutrophils Percent Auto 53.7 % (50-75); Platelet Count 203 X10^3/uL (150-400); Red Blood Cell Count 5.17 X10^6/uL (4.5-5.9); Red Cell Distribution Width 13.9 % (11.6-14.8); White Blood Cell Count 4.4 X10^3/uL (4.5-11.0)
[2022-07-05 14:13] LABS: Alanine Aminotransferase 23 IU/L (<50); Albumin 4.7 g/dL (3.5-5.0); Albumin Globulin Ratio 1.5 (1.0-2.8); Alkaline Phosphatase 76 U/L (38-126); Aspartate Aminotransferase 31 IU/L (17-59); BUN Creatinine Ratio 18.8 (6-22); Bilirubin Total 0.6 mg/dL (0.2-1.3); Blood Urea Nitrogen 16 mg/dL (9-20); Calcium 9.7 mg/dL (8.4-10.2); Carbon Dioxide 32 mmol/L (22-32); Chloride 95 mmol/L (98-107); Estimated Glomerular Filt Rate > 60 mL/min (>60); Globulin 3.2 g/dL (1.7-4.1); Glucose 86 mg/dL (80-110); HEMOLYSIS < 15 (0-50); Potassium 3.7 mmol/L (3.4-5.1); Sodium 137 mmol/L (137-145); Total Protein 7.9 g/dL (6.3-8.2)
== END ==
PROVIDERS: PCP Internal Medicine; Referring Provider Internal Medicine; Visit Provider Internal Medicine
DX: R42 Dizziness and giddiness (principal); I10 Essential (primary) hypertension; R06.00 Dyspnea, unspecified; R60.9 Edema, unspecified
CPT/HCPCS: 36415; 71046; 80053; 83735; 85025

== ENCOUNTER → 2022-08-01 11:30 | Outpatient (CLI) | payer MEDICARE, OTHER, SELFPAY ==
[2022-08-01 12:25] LABS: Influenza A - CEPHEID Flu A NEGATIVE (NEGATIVE); Influenza B - CEPHEID Flu B NEGATIVE (NEGATIVE); Respiratory Syncytial Virus Negative (Negative)
[2022-08-01 12:26] LABS: COVID-19 CEPHEID 4-PLEX PCR Negative (Negative)
== END ==
PROVIDERS: PCP Internal Medicine; Visit Provider Nurse Practitioner Family
DX: R05.1 Acute cough (principal)
CPT/HCPCS: 0241U

== ENCOUNTER → 2023-09-25 09:30 | Outpatient (CLI) | payer MEDICARE, OTHER, SELFPAY ==
[2023-09-25 10:36] LABS: Alanine Aminotransferase 20 IU/L (<50); Albumin 4.3 g/dL (3.5-5.0); Albumin Globulin Ratio 1.6 (1.0-2.8); Alkaline Phosphatase 69 U/L (38-126); Aspartate Aminotransferase 27 IU/L (17-59); Bilirubin Total 0.8 mg/dL (0.2-1.3); Blood Urea Nitrogen 18 mg/dL (9-20); Calcium 9.3 mg/dL (8.4-10.2); Carbon Dioxide 33 mmol/L (22-32); Chloride 106 mmol/L (98-107); Cholesterol 165 mg/dL (140-199); Estimated Glomerular Filt Rate > 60 mL/min (>60); Globulin 2.7 g/dL (1.7-4.1); Glucose 91 mg/dL (80-110); HDL Cholesterol 47 mg/dL (40-60); HEMOLYSIS < 15 (0-50); LDL Cholesterol Calculated 103 mg/dL (<100); Magnesium 2.1 mg/dL (1.6-2.3); Potassium 3.9 mmol/L (3.4-5.1); Sodium 139 mmol/L (137-145); Triglycerides 75 mg/dL (35-150)
== END ==
PROVIDERS: PCP Internal Medicine; Referring Provider Internal Medicine; Visit Provider Internal Medicine
DX: I10 Essential (primary) hypertension (principal); R60.9 Edema, unspecified; Z13.6 Encounter for screening for cardiovascular disorders
CPT/HCPCS: 36415; 80053; 80061; 83735

== ENCOUNTER → 2024-10-05 07:41 | Outpatient (CLI) | payer MEDICARE, OTHER, SELFPAY ==
[2024-10-05 09:02] LABS: Alanine Aminotransferase 23 IU/L (<50); Albumin 4.5 g/dL (3.5-5.0); Albumin Globulin Ratio 1.8 (1.0-2.8); Alkaline Phosphatase 58 U/L (38-126); Aspartate Aminotransferase 32 IU/L (17-59); BUN Creatinine Ratio 26.3 (6-22); Blood Urea Nitrogen 21 mg/dL (9-20); Calcium 9.5 mg/dL (8.4-10.2); Carbon Dioxide 30 mmol/L (22-32); Chloride 101 mmol/L (98-107); Estimated Glomerular Filt Rate > 60 mL/min (>60); Globulin 2.5 g/dL (1.7-4.1); Glucose 88 mg/dL (70-99); HEMOLYSIS < 15 (0-50); Potassium 3.8 mmol/L (3.4-5.1); Sodium 138 mmol/L (137-145)
== END ==
PROVIDERS: PCP Internal Medicine; Referring Provider Internal Medicine; Visit Provider Internal Medicine
DX: I10 Essential (primary) hypertension (principal); R60.9 Edema, unspecified
CPT/HCPCS: 36415; 80053